=== PATIENT | female | born 1930 | race American Indian/Alaskan Native ===

== ENCOUNTER 2016-11-28 09:02 | Outpatient (CLI) | payer MEDICARE ==
[2016-11-28 09:37] LABS: Mean Corpuscular HGB Conc 30 % (30-34); Mean Corpuscular Volume 74 fl (79-97); Platelet Count 185 K/mm3 (140-440); Red Blood Count 5.32 M/mm3 (3.65-5.03); Red Cell Distribution Width 15.9 % (13.2-15.2); White Blood Count 4.7 K/mm3 (4.5-11.0)
[2016-11-28 09:44] LABS: Hematocrit 39.2 % (30.3-42.9); Hemoglobin 11.8 gm/dl (10.1-14.3); Mean Corpuscular Hemoglobin 22 pg (28-32)
[2016-11-28 09:46] LABS: Albumin 3.7 g/dL (3.9-5); Albumin/Globulin Ratio 1.1 %; BUN/Creatinine Ratio 17.69; Bilirubin,Total 0.6 mg/dL (0.1-1.2); Calcium 8.6 mg/dL (8.4-10.2); Chloride 106.2 mmol/L (98-107); Potassium 4.1 mmol/L (3.6-5.0)
[2016-11-28 10:29] LABS: Erythrocyte Sedimentation Rate 6 mm/Hr (0-20)
[2016-11-29 23:40] LABS: Albumin 3.7 g/dL (3.8-4.8); Gamma Globulin 1.3 g/dL (0.8-1.7)
== END 2016-11-28 09:03 | disposition home or self-care (01) ==
LOC: LAB 09:02
PROVIDERS: ATTEND Specialist
DX: G60.9 Hereditary and idiopathic neuropathy, unspecified (principal)
CPT/HCPCS: 36415; 80053; 82607; 82747; 82951; 84165; 84439; 84443; 85027; 85652

== ENCOUNTER 2022-02-23 18:11 | Observation (INO) | payer MEDICARE ==
--- NOTE | 2022-02-23 20:59 | XRay Report ---
Chest single view INDICATION: Weakness IMPRESSION: There is cardiomegaly with mild bilateral interstitial edema. Small pleural effusions are present. Signer Name: Harsh House MD Signed: 02/23/2022 8:54 PM Workstation Name: [email or web address] [id number] [id number]
[2022-02-23 21:13] LABS: Bilirubin,Urine NEG (Negative); Blood,Urine MOD (Negative); Color,Urine Yellow (Yellow); Urobilinogen,Urine < 2.0 mg/dL (<2.0)
[2022-02-23 21:19] LABS: Bacteria,Urine 2+ /HPF (Negative); Mucus,Urine FEW /HPF
[2022-02-23 21:22] LABS: WBC,Urine > 182.0 /HPF (0.0-6.0)
[2022-02-23 21:38] LABS: Hematocrit 41.6 % (30.3-42.9); Mean Corpuscular HGB Conc 31 % (30-34); Mean Corpuscular Volume 74 fl (79-97); Platelet Count 145 K/mm3 (140-440); Red Blood Count 5.64 M/mm3 (3.65-5.03); Red Cell Distribution Width 14.8 % (13.2-15.2)
[2022-02-23 21:58] LABS: Albumin 3.7 g/dL (3.9-5); Calcium 9.1 mg/dL (8.4-10.2)
[2022-02-23 22:10] LABS: Chol/HDL Ratio 5.33 %
--- NOTE | 2022-02-23 23:50 | Emergency Department Report ---
- General Chief complaint: Weakness Stated complaint: GENERALIZED WEAKNESS Time Seen by Provider: 02/23/22 22:18 Source: patient, EMS Mode of arrival: Stretcher Limitations: Physical Limitation - History of Present Illness Initial comments: Yuliana is a 89-year-old female past medical history of CHF, renal insufficiency, A. fib, thyroid disorder, pacemaker implantation presents emerged department complaining of similar symptoms that she was experiencing on 02/08/2022 where she visited the emergency department with a strong suspicion for dehydration after receiving 80 mg Lasix x2 at outside facility. During that time she was found to have urinary tract infection as well as acute kidney injury with a creatinine of 2.9 GFR of 18 serum potassium of 5.1 she was started on IV Levaquin as well as bolus 500 cc of normal saline and admitted for further management. She reports taking her medication as prescribed but reports minimal improvement of her energy level which is the reason for her return. She reports no hemoptysis no hematemesis no hematochezia, no fever, chills, sweats. No orthopnea or weight gain reported. Severity scale (0 -10): 0 - Related Data Home Medications Medication Instructions Recorded Confirmed Last Taken Albuterol Sulfate [Ventolin HFA] 2 puff IH Q4H PRN 01/24/14 02/09/22 10/07/14 08:00 Clopidogrel Bisulfate [Plavix] 75 mg PO DAILY 01/24/14 02/09/22 10/07/14 08:00 Furosemide [Lasix] 20 mg PO DAILY 01/24/14 02/09/22 10/07/14 08:00 Levothyroxine [Synthroid] 88 mcg PO QAM 01/24/14 02/09/22 10/07/14 08:00 Losartan [Cozaar] 50 mg PO QDAY 01/24/14 02/09/22 10/07/14 08:00 Metoprolol [Lopressor TAB] 50 mg PO BID 01/24/14 02/09/22 10/07/14 08:00 Pioglitazone [Actos] 15 mg PO QDAY 01/24/14 02/09/22 10/07/14 08:00 Previous Rx's Medication Instructions Recorded Last Taken Type traMADoL [Ultram 50 MG tab] 50 mg PO Q6H PRN #20 tablet 01/24/14 10/07/14 08:00 Rx Apixaban [Eliquis] 5 mg PO Q12HR tablet 02/10/22 Unknown Rx Nitrofurantoin [place]/M-Cryst 100 mg PO Q12HR #10 capsule 02/10/22 Unknown Rx [Macrobid CAP] Allergies Allergy/AdvReac Type Severity Reaction Status Date / Time aspirin Allergy Rash Verified 02/23/22 19:00 Penicillins Allergy Rash Verified 02/23/22 19:00 contrast dye Allergy Unknown Uncoded 02/23/22 19:00 ED Review of Systems ROS: Stated complaint: GENERALIZED WEAKNESS Other details as noted in HPI Comment: All other systems reviewed and negative ED Past Medical Hx - Past Medical History Hx Hypertension: Yes Hx Heart Attack/AMI: No Hx Congestive Heart Failure: Yes Hx Diabetes: Yes Hx GERD: Yes Hx Sickle Cell Disease: No Hx Arthritis: Yes Hx COPD: Yes Hx HIV: No Additional medical history: double masectomy, stents in each leg - Surgical History Hx Coronary Stent: Yes Hx Breast Surgery: Yes (DOUBLE MASTECTOMY) - Social History Smoking Status: Never Smoker - Medications Home Medications: Home Medications Medication Instructions Recorded Confirmed Last Taken Type Albuterol Sulfate [Ventolin HFA] 2 puff IH Q4H PRN 01/24/14 02/09/22 10/07/14 08:00 History Clopidogrel Bisulfate [Plavix] 75 mg PO DAILY 01/24/14 02/09/22 10/07/14 08:00 History Furosemide [Lasix] 20 mg PO DAILY 01/24/14 02/09/22 10/07/14 08:00 History Levothyroxine [Synthroid] 88 mcg PO QAM 01/24/14 02/09/22 10/07/14 08:00 History Losartan [Cozaar] 50 mg PO QDAY 01/24/14 02/09/22 10/07/14 08:00 History Metoprolol [Lopressor TAB] 50 mg PO BID 01/24/14 02/09/22 10/07/14 08:00 History Pioglitazone [Actos] 15 mg PO QDAY 01/24/14 02/09/22 10/07/14 08:00 History traMADoL [Ultram 50 MG tab] 50 mg PO Q6H PRN #20 tablet 01/24/14 02/09/22 10/07/14 08:00 Rx Apixaban [Eliquis] 5 mg PO Q12HR tablet 02/10/22 Unknown Rx Nitrofurantoin Ceiba/M-Cryst 100 mg PO Q12HR #10 capsule 02/10/22 Unknown Rx [Macrobid CAP] ED Physical Exam - General Limitations: Physical Limitation General appearance: alert, in no apparent distress - Head Head exam: Present: atraumatic, normocephalic - Eye Eye exam: Present: normal appearance - ENT ENT exam: Present: mucous membranes moist - Neck Neck exam: Present: normal inspection, full ROM, other (No JVD noted). Absent: tenderness, lymphadenopathy - Respiratory Respiratory exam: Present: normal lung sounds bilaterally, decreased breath sounds (To the bases). Absent: respiratory distress - Cardiovascular Cardiovascular Exam: Present: regular rate, normal rhythm. Absent: systolic murmur, diastolic murmur, rubs, gallop - GI/Abdominal GI/Abdominal exam: Present: soft, normal bowel sounds. Absent: tenderness, rebound, hypoactive bowel sounds - Extremities Exam Extremities exam: Present: normal inspection - Back Exam Back exam: Present: normal inspection - Neurological Exam Neurological exam: Present: alert, oriented X3 - Psychiatric Psychiatric exam: Present: normal affect, normal mood - Skin Skin exam: Present: warm, dry, intact, normal color. Absent: rash - Level of Consciousness 1a. Level of Consciousness: alert/keenly responsive - LOC Questions 1b. LOC Questions: answers both correctly - LOC Command 1c. LOC Commands: performs tasks correctly - Best Gaze 2. Best Gaze: normal - Visual 3. Visual: no visual loss - Facial Palsy 4. Facial Palsy: normal symmetrical movement - Motor Arm 5a. Motor Arm Left: no drift 5b. Motor Arm Right: no drift - Motor Leg 6a. Motor Leg Left: no drift 6b. Motor Leg Right: no movement - Limb Ataxia 7. Limb Ataxia: absent - Sensory 8. Sensory: normal - Best Language 9. Best Language: no aphasia - Dysarthria 10. Dysarthria: normal - Extinction and Inattention 11. Extinction/Inattention: no abnormality - Scoring Total Score: 4 Stroke Severity: Minor Stroke ED Course Vital Signs 02/23/22 18:12 Temperature 98.1 F Pulse Rate 78 Respiratory 18 Rate Blood Pressure 130/72 [Left] O2 Sat by Pulse 100 Oximetry ED Medical Decision Making - Lab Data Result diagrams: 02/23/22 21:28 02/23/22 21:28 - Radiology Data [facility] [address] [place] [address] XRay Report Signed Patient: CHASIDY MCKEON MR#: [id number] : 1930 Acct:[id number] Age/Sex: 89 / F ADM Date: 02/23/22 Loc: ED Attending Dr: Ordering Physician: BEBE LEHMAN Date of Service: 02/23/22 Procedure(s): XR chest 1V ap Accession Number(s): [id number] cc: BEBE LEHMAN Fluoro Time In Minutes: Chest single view INDICATION: Weakness IMPRESSION: There is cardiomegaly with mild bilateral interstitial edema. Small pleural effusions are present. Signer Name: Harsh House MD Signed: 02/23/2022 8:54 PM Workstation Name: [id number] Transcribed By: BC Dictated By: Harsh House MD Electronically Authenticated By: Harsh House MD Signed Date/Time: 02/23/222053 DD/ 53 TD/TT: Critical care attestation.: If time is entered above; I have spent that time in minutes in the direct care of this critically ill patient, excluding procedure time. ED Disposition Condition: Stable Referrals: SAMANTA NOEL MD [Primary Care Provider] - 3-5 Days
[2022-02-24] MEDS ORDERED: cefTRIAXone/NS 1 GM/50 ML 1 GM/50 ML BAG IV STA (00:04)
[2022-02-24] MEDS ORDERED: MORPHINE 2 MG/1 ML INJ IV PRN (00:28)
[2022-02-24] MEDS ORDERED: MORPHINE 4 MG/1 ML INJ IV PRN (00:28)
[2022-02-24] MEDS ORDERED: ACETAMINOPHEN 325 MG TAB PO PRN (00:28)
[2022-02-24] MEDS ORDERED: ALBUTEROL 2.5 MG/3 ML NEBU IH PRN (00:28)
[2022-02-24] MEDS ORDERED: DEXTROSE 50% IN WATER (25GM) 50 ML SYRINGE IV PRN (00:28)
[2022-02-24] MEDS ORDERED: ONDANSETRON 4 MG/2 ML INJ IV PRN (00:28)
--- NOTE | 2022-02-24 00:37 | History and Physical Report ---
History of Present Illness Date of examination: 02/24/22 Date of admission: 02/24/22 Chief complaint: Weakness History of present illness: 89-year-old female past medical history of CHF, renal insufficiency, A. fib, thyroid disorder, pacemaker implantation presents emerged department complaining of similar symptoms that she was experiencing on 02/08/2022 where she visited the emergency department with a strong suspicion for dehydration after receiving 80 mg Lasix x2 at outside facility. During that time she was found to have urinary tract infection as well as acute kidney injury with a creatinine of 2.9 GFR of 18 serum potassium of 5.1 she was started on IV Levaquin as well as bolus 500 cc of normal saline and admitted for further management. She reports taking her medication as prescribed but reports minimal improvement of her energy level which is the reason for her return. She reports no hemoptysis no hematemesis no hematochezia, no fever, chills, sweats. No orthopnea or weight gain reported. In the emergency room patient is found to have a UTI patient urine WBCs 182. We are going to admit the patient we will put the patient on antibiotic we will send the urine for culture Past History Past Medical History: atrial fib, arthritis (double masectomy, stents in each leg), diabetes, GERD, heart failure, renal failure, other (Thyroid disorder) Past Surgical History: Other (double masectomy, stents in each leg) Social history: no significant social history Family history: hypertension Medications and Allergies Allergies Allergy/AdvReac Type Severity Reaction Status Date / Time aspirin Allergy Rash Verified 02/23/22 19:00 Penicillins Allergy Rash Verified 02/23/22 19:00 contrast dye Allergy Unknown Uncoded 02/23/22 19:00 Home Medications Medication Instructions Recorded Confirmed Last Taken Type Albuterol Sulfate [Ventolin HFA] 2 puff IH Q4H PRN 01/24/14 02/09/22 10/07/14 08:00 History Clopidogrel Bisulfate [Plavix] 75 mg PO DAILY 01/24/14 02/09/22 10/07/14 08:00 History Furosemide [Lasix] 20 mg PO DAILY 01/24/14 02/09/22 10/07/14 08:00 History Levothyroxine [Synthroid] 88 mcg PO QAM 01/24/14 02/09/22 10/07/14 08:00 History Losartan [Cozaar] 50 mg PO QDAY 01/24/14 02/09/22 10/07/14 08:00 History Metoprolol [Lopressor TAB] 50 mg PO BID 01/24/14 02/09/22 10/07/14 08:00 History Pioglitazone [Actos] 15 mg PO QDAY 01/24/14 02/09/22 10/07/14 08:00 History traMADoL [Ultram 50 MG tab] 50 mg PO Q6H PRN #20 tablet 01/24/14 02/09/22 10/07/14 08:00 Rx Apixaban [Eliquis] 5 mg PO Q12HR tablet 02/10/22 Unknown Rx Nitrofurantoin [place]/M-Cryst 100 mg PO Q12HR #10 capsule 02/10/22 Unknown Rx [Macrobid CAP] Active Meds: Active Medications Acetaminophen (Acetaminophen 325 Mg Tab) 650 mg PO Q4H PRN PRN Reason: Pain MILD(1-3)/Fever >100.5/GAINES Albuterol (Albuterol 2.5 Mg/3 Ml Nebu) 2.5 mg IH Q3HRT PRN PRN Reason: Shortness Of Breath Albuterol/Ipratropium (Ipratropium/Albuterol Sulfate 3 Ml Ampul.Neb) 1 ampul IH Q6HRT LILLY Clopidogrel Bisulfate (Clopidogrel 75 Mg Tab) 75 mg PO DAILY [facility] Dextrose (Dextrose 50% In Water (25gm) 50 Ml Syringe) 50 ml IV Q30MIN PRN; Prot ocol PRN Reason: Hypoglycemia Famotidine (Famotidine 20 Mg/2 Ml Inj) 20 mg IV BID [facility] Furosemide (Furosemide 20 Mg Tab) 20 mg PO DAILY [facility] Heparin Sodium (Porcine) (Heparin 5,000 Unit/1 Ml Vial) 5,000 unit SUB-Q Q12HR [facility] Ceftriaxone Sodium (Rocephin/Ns 2 Gm/100 Ml) 2 gm in 100 mls @ 200 mls/hr IV Q24H LILLY; Protocol Insulin Human Lispro (Insulin Lispro 100 Unit/Ml) 0 unit SUB-Q ACHS LILLY; Pro tocol Miscellaneous Medication (Apixaban) 5 mg PO Q12HR [facility] Morphine Sulfate (Morphine 2 Mg/1 Ml Inj) 2 mg IV Q4H PRN PRN Reason: Pain, Moderate (4-6) Morphine Sulfate (Morphine 4 Mg/1 Ml Inj) 4 mg IV Q4H PRN PRN Reason: Pain , Severe (7-10) Ondansetron HCl (Ondansetron 4 Mg/2 Ml Inj) 4 mg IV Q8H PRN PRN Reason: Nausea And Vomiting Sodium Chloride (Sodium Chloride 0.9% 10 Ml Flush Syringe) 10 ml IV BID LILLY Sodium Chloride (Sodium Chloride 0.9% 10 Ml Flush Syringe) 10 ml IV PRN PRN PRN Reason: LINE FLUSH Review of Systems All systems: negative Constitutional: fatigue, weakness, malaise, lethargy Exam - Constitutional Vitals: Temp Pulse Resp BP Pulse Ox 98.1 F 78 18 130/72 100 02/23/22 18:12 02/23/22 18:12 02/23/22 18:12 02/23/22 18:12 02/23/22 18:12 General appearance: Present: no acute distress, well-nourished - EENT Eyes: Present: PERRL ENT: hearing intact, clear oral mucosa - Neck Neck: Present: supple, normal ROM - Respiratory Respiratory effort: normal Respiratory: bilateral: CTA - Cardiovascular Heart Sounds: Present: S1 & S2. Absent: rub, click - Extremities Extremities: pulses symmetrical, No edema Peripheral Pulses: within normal limits - Abdominal General gastrointestinal: Present: soft, non-tender, non-distended, normal bowel sounds Female genitourinary: Present: normal - Integumentary Integumentary: Present: clear, warm, dry - Musculoskeletal Musculoskeletal: gait normal, strength equal bilaterally - Psychiatric Psychiatric: appropriate mood/affect, intact judgment & insight - Neurologic Neurologic: CNII-XII intact, moves all extremities HEART Score - HEART Score Troponin: Troponin T 0.046 ng/mL (0.00-0.029) H 02/23/22 21:28 Results - Labs CBC & Chem 7: 02/23/22 21:28 02/23/22 21:28 Labs: Laboratory Last Values WBC 4.1 K/mm3 (4.5-11.0) L 02/23/22 21:28 RBC 5.64 M/mm3 (3.65-5.03) H 02/23/22 21:28 Hgb 13.0 gm/dl (10.1-14.3) 02/23/22 21:28 Hct 41.6 % (30.3-42.9) 02/23/22 21: MCV 74 fl (79-97) L 02/23/22 21: MCH 23 pg (28-32) L 02/23/22 21:28 MCHC 31 % (30-34) 02/23/22 21:28 RDW 14.8 % (13.2-15.2) 02/23/22 21:28 Plt Count 145 K/mm3 (140-440) 02/23/22 21:28 Sodium 137 mmol/L (137-145) 02/23/22 21:28 Potassium 5.1 mmol/L (3.6-5.0) H 02/23/22 21:28 Chloride 101.7 mmol/L (98-107) 02/23/22 21: Carbon Dioxide 20 mmol/L (22-30) L 02/23/22 21: Anion Gap 20 mmol/L 02/23/22 21:28 BUN 55 mg/dL (7-17) H 02/23/22 21: Creatinine 1.6 mg/dL (0.6-1.2) H 02/23/22 21:28 Estimated GFR 37 ml/min 02/23/22 21: BUN/Creatinine Ratio 34 % 02/23/22 21: Glucose 94 mg/dL (65-100) 02/23/22 21: Calcium 9.1 mg/dL (8.4-10.2) 02/23/22 21: Total Bilirubin 1.00 mg/dL (0.1-1.2) 02/23/22 21: AST 39 units/L (5-40) 02/23/22 21: ALT 12 units/L (7-56) 02/23/22 21:28 Alkaline Phosphatase 43 units/L (35-129) 02/23/22 21:28 Troponin T 0.046 ng/mL (0.00-0.029) H 02/23/22 21:28 NT-Pro-B Natriuret Pep 8032 pg/mL (0-900) H 02/23/22 21:28 Total Protein 6.6 g/dL (6.3-8.2) 02/23/22 21:28 Albumin 3.7 g/dL (3.9-5) L 02/23/22 21: Albumin/Globulin Ratio 1.3 % 02/23/22 21: Triglycerides 173 mg/dL (2-149) H 02/23/22 21: Cholesterol 176 mg/dL (50-199) 02/23/22 21: LDL Cholesterol Direct 98 mg/dL (50-130) 02/23/22 21: HDL Cholesterol 33 mg/dL (40-59) L 02/23/22 21: Cholesterol/HDL Ratio 5.33 % 02/23/22 21:28 Urine Color Yellow (Yellow) 02/23/22 Unknown Urine Turbidity Cloudy (Clear) 02/23/22 Unknown Urine pH 5.0 (5.0-7.0) 02/23/22 Unknown Ur Specific [place] 1.013 (1.003-1.030) 02/23/22 Unknown Urine Protein 30 mg/dl mg/dL (Negative) 02/23/22 Unknown Urine Glucose (UA) Neg mg/dL (Negative) 02/23/22 Unknown Urine Ketones Neg mg/dL (Negative) 02/23/22 Unknown Urine Blood Mod (Negative) 02/23/22 Unknown Urine Nitrite Pos (Negative) 02/23/22 Unknown Urine Bilirubin Neg (Negative) 02/23/22 Unknown Urine Urobilinogen < 2.0 mg/dL (<2.0) 02/23/22 Unknown Ur Leukocyte Esterase Lg (Negative) 02/23/22 Unknown Urine WBC (Auto) > 182.0 /HPF (0.0-6.0) H 02/23/22 Unknown Urine RBC (Auto) 6.0 /HPF (0.0-6.0) 02/23/22 Unknown U Epithel Cells (Auto) 7.0 /HPF (0-13.0) 02/23/22 Unknown Urine Bacteria (Auto) 2+ /HPF (Negative) 02/23/22 Unknown Urine Mucus Few /HPF 02/23/22 Unknown Urine Yeast (Budding) Few /HPF 02/23/22 Unknown - Imaging and Cardiology Chest x-ray: report reviewed Assessment and Plan VTE prophylaxis?: Chemical Plan of care discussed with patient/family: Yes - Patient Problems (1) Urinary tract infection Current Visit: No Status: Acute Plan to address problem: Admit the patient to the medical floor. We will put the patient on cardiac/1800 kcal ADA diet. Rocephin 2 g IV daily. We will do the blood culture urine culture. Recheck CBC in the morning (2) Acute heart failure Current Visit: No Status: Acute Plan to address problem: Stable. We will put the patient on fluid restriction. We will continue the Las ix 20 mg p.o. daily and losartan 50 mg p.o. daily. Outpatient follow-up with cardiology (3) Acute kidney injury Current Visit: No Status: Acute Plan to address problem: Avoid nephrotoxic drug. Renally dose medication. Reconsult nephrology for evaluation. Recheck BMP in the morning (4) Atrial fibrillation with RVR Current Visit: No Status: Acute Plan to address problem: Toprol to 50 mg p.o. twice daily. Eliquis 5 mg p.o. every 12 hours. Losartan 50 mg p.o. daily. Outpatient follow-up with cardiology (5) Hypothyroidism Current Visit: No Status: Acute Plan to address problem: Levothyroxine 88 mcg p.o. every morning. We recheck that TSH. We will monitor the patient closely (6) DVT prophylaxis Current Visit: No Status: Acute Plan to address problem: Eliquis 5 mg p.o. every 12 hours for DVT prophylaxis. Pepcid 20 mg p.o. every 12 hours for GI prophylaxis. Patient is a full code
[2022-02-24 00:46] LABS: INR 1.29 (0.87-1.13)
[2022-02-24] MEDS ORDERED: IPRATROPIUM/ALBUTEROL SULFATE 3 ML AMPUL.NEB IH SCH (02:00)
[2022-02-24] MEDS: LEVOTHYROXINE 88 MCG TAB PO SCH (06:16)
[2022-02-24] MEDS: INSULIN LISPRO 100 UNIT/ML SUB-Q SCH ×5 (07:51→21:47)
[2022-02-24] MEDS: METOPROLOL TARTRATE 50 MG TAB PO SCH ×2 (07:57→17:44)
[2022-02-24] MEDS ORDERED: PIOGLITAZONE 15 MG TAB PO SCH (08:00)
--- NOTE | 2022-02-24 09:20 | Electrocardiograph Report ---
Test Date: 2022-02-24 Test Time: 00:11:01 Pat Name: CHASIDY MCKEON Department: Room: A458 1 Gender: F Coil Tier: LESLIE : 1930 Requested By: LOIS FREDERICK Order Number: [id number] Reading MD: Rachid Erwin Measurements Intervals [place] Rate: 72 P: [place]: QRS: -81 QRSD: 115 T: 93 QT: 416 QTc: 456 Interpretive Statements ventricular-paced rhythm No previous ECG available for comparison Electronically Signed On 02-24-2022 9:19:40 EDT by Rachid Erwin
[2022-02-24] MEDS ORDERED: HEPARIN 5,000 UNIT/1 ML VIAL SUB-Q SCH (10:00)
[2022-02-24] MEDS ORDERED: cefTRIAXone/NS 2 GM/100 ML 2 GM/100 ML BAG IV SCH (10:00)
[2022-02-24] MEDS ORDERED: FAMOTIDINE 20 MG/2 ML INJ IV SCH (10:00)
[2022-02-24] MEDS: APIXABAN 5 MG TAB PO SCH ×2 (10:08→21:40)
[2022-02-24] MEDS: FUROSEMIDE 20 MG TAB PO SCH (10:08)
[2022-02-24] MEDS: LOSARTAN 50 MG TAB PO SCH (10:08)
[2022-02-24] MEDS: CLOPIDOGREL 75 MG TAB PO SCH (10:09)
--- NOTE | 2022-02-24 14:05 | Event Note ---
Date: 02/24/22 The patient was evaluated this morning, she was found to be hemodynamically stable. #Acute on chronic systolic heart failure - Continue CHF exacerbation protocol: Telemetry, Strict I/O, monitor urine output every shift, daily weights, afterload reduction, low-sodium diet, and fluid restriction of approximately 1.5 mL/day, IV Lasix 40 mg twice daily, losartan 50 mg daily, Plavix 75 mg daily - Supplemental oxygen: None - ProBNP on admission: 8032 - Cardiology consulted; pending recs - Pending TTE to evaluate cardiac function - Continue to monitor #Acute cystitis without hematuria Urinalysis revealing positive nitrites, large leukocyte esterase, >182 WBCs, 2+ bacteria Pending urine culture. Continue Rocephin 2 g daily #CKD stage III Creatinine 1.6 (baseline unknown) During patient's previous hospitalization (January 2022) patient presented with an AJ. The current creatinine is actually lower than the previous hospitalizations. It is highly likely that the patient is at her baseline. Continue to monitor with daily BMP. #Chronic atrial fibrillation Continue home metoprolol tartrate 50 mg twice daily, Eliquis 5 mg every 12 hours #Hypothyroidism Continue home levothyroxine 88 mcg daily #Mild protein caloric malnutrition Albumin 3.7 Will start dietary supplementation once patient becomes more stable. #Coordination of CARE time: 30 minutes. Total visit time equals 30 or more minutes with greater than 50% spent [id number] on coordination of care and counseling. #Advanced care planning -Disease education conducted, care plan discussed, diagnoses discussed, prognosis discussed, and patient acknowledges understanding with care plan -Time: +30 min
[2022-02-25 04:41] LABS: Mean Corpuscular HGB Conc 31 % (30-34); Mean Corpuscular Volume 75 fl (79-97); Platelet Count 145 K/mm3 (140-440); Red Blood Count 6.05 M/mm3 (3.65-5.03)
[2022-02-25 05:00] LABS: Hematocrit 45.6 % (30.3-42.9)
[2022-02-25 05:08] LABS: Calcium 9.1 mg/dL (8.4-10.2)
[2022-02-25] MEDS: LEVOTHYROXINE 88 MCG TAB PO SCH (07:03)
[2022-02-25 07:06] LABS: Anisocytosis 2+; Basophils % (Manual) 0 % (0.0-1.8); Eosinophils % (Manual) 0 % (0.0-4.3); Hypochromasia 1+; Ovalocytes Few; Platelet Estimate Consistent w Auto; Total Cells Counted 100
[2022-02-25] MEDS ORDERED: SODIUM POLYSTYRENE 15 GM/60 ML ORAL LIQD PO NR (07:28)
[2022-02-25] MEDS ORDERED: cefTRIAXone/NS 1 GM/50 ML 1 GM/50 ML BAG IV SCH (10:00)
[2022-02-25] MEDS: INSULIN LISPRO 100 UNIT/ML SUB-Q SCH ×4 (10:19→22:36)
[2022-02-25] MEDS: FAMOTIDINE 20 MG TAB PO SCH (10:19)
[2022-02-25] MEDS: LOSARTAN 50 MG TAB PO SCH (10:19)
[2022-02-25] MEDS: APIXABAN 5 MG TAB PO SCH ×2 (10:19→21:12)
[2022-02-25] MEDS: FUROSEMIDE 20 MG TAB PO SCH (10:20)
[2022-02-25] MEDS: CLOPIDOGREL 75 MG TAB PO SCH (10:20)
[2022-02-25] MEDS: METOPROLOL TARTRATE 50 MG TAB PO SCH (10:20)
--- NOTE | 2022-02-25 16:39 | Progress Note ---
Assessment and Plan Assessment and plan: #Acute on chronic systolic heart failure-ruled out - Continue CHF exacerbation protocol: Telemetry, Strict I/O, monitor urine output every shift, daily weights, afterload reduction, low-sodium diet, and fluid restriction of approximately 1.5 mL/day, IV Lasix 40 mg twice daily, losartan 50 mg daily, Plavix 75 mg daily - Supplemental oxygen: None - ProBNP on admission: 8032 - Cardiology consulted; Appreciate recs -TTE (02/25/2022) revealing EF 50-55% with normal size LV, normal LV systolic function, mild concentric LV hypertrophy, moderately dilated RV, mildly reduced RV systolic function, severely dilated LA, severely dilated RA, and RVSP is 35 mmHg. - Continue to monitor #Acute cystitis without hematuria Urinalysis revealing positive nitrites, large leukocyte esterase, >182 WBCs, 2+ bacteria Urine culture with gram-negative rods. Pending speciation and sensitivities. Patient has been having repeated episodes of acute cystitis despite antibiotic treatment. Concern for resistant bacteria. Continue Rocephin 2 g daily #CKD stage III- Creatinine 1.6-->1.4 (baseline unknown) During patient's previous hospitalization (January 2022) patient presented with an AJ. The current creatinine is actually lower than the previous hospitalizations. It is highly likely that the patient is at her baseline. Continue to monitor with daily BMP. #Chronic atrial fibrillation Continue home metoprolol tartrate 50 mg twice daily, Eliquis 5 mg every 12 hours #Hypothyroidism Continue home levothyroxine 88 mcg daily #Mild protein caloric malnutrition Albumin 3.7 Starting dietary supplementation. #Advanced care planning -Disease education conducted, care plan discussed, diagnoses discussed, prognosi s discussed, and patient acknowledges understanding with care plan -Time: +30 min Disposition Plan: Continue medical management Total Time Spent with Patient (Minutes): 45 min History Interval history: No acute events overnight. Hospitalist Physical - Constitutional Vitals: Temp Pulse Resp BP Pulse Ox 97.5 F L 82 18 94/52 97 02/25/22 12:10 02/25/22 12:10 02/25/22 12:10 02/25/22 12:10 02/25/22 13:00 General appearance: Present: no acute distress, well-nourished - EENT Eyes: Present: PERRL, EOM intact ENT: hearing intact, clear oral mucosa, dentition normal - Neck Neck: Present: supple, normal ROM - Respiratory Respiratory effort: normal Respiratory: bilateral: diminished (2 L nasal cannula) - Cardiovascular Rhythm: regular Heart Sounds: Present: S1 & S2 - Extremities Extremities: no ischemia, pulses intact, pulses symmetrical, No edema, normal temperature, normal color Peripheral Pulses: within normal limits - Abdominal General gastrointestinal: soft, non-tender, non-distended, normal bowel sounds - Integumentary Integumentary: Present: clear, warm, dry - Psychiatric Psychiatric: appropriate mood/affect, intact judgment & insight, memory intact, cooperative - Neurologic Neurologic: CNII-XII intact - Allied Health Allied health notes reviewed: nursing HEART Score - HEART Score Troponin: Troponin T 0.050 ng/mL (0.00-0.029) H 02/24/22 00:22 Results - Labs CBC & Chem 7: 02/25/22 04:25 02/25/22 04:25 Labs: Laboratory Last Values WBC 4.1 K/mm3 (4.5-11.0) L 02/25/22 04:25 RBC 6.05 M/mm3 (3.65-5.03) H 02/25/22 04:25 Hgb 14.0 gm/dl (10.1-14.3) 02/25/22 04:25 Hct 45.6 % (30.3-42.9) H 02/25/22 04:25 MCV 75 fl (79-97) L 02/25/22 04:25 MCH 23 pg (28-32) L 02/25/22 04:25 MCHC 31 % (30-34) 02/25/22 04:25 RDW 15.0 % (13.2-15.2) 02/25/22 04:25 Plt Count 145 K/mm3 (140-440) 02/25/22 04:25 Barron % (Auto) Flare Breaker 02/25/22 04:25 Add Manual Diff Complete 02/25/22 04:25 Total Counted 100 02/25/22 04:25 Seg Neuts % (Manual) 72.0 % (40.0-70.0) H 02/25/22 04:25 Band Neutrophils % 1.0 % 02/25/22 04:25 Lymphocytes % (Manual) 10.0 % (13.4-35.0) L 02/25/22 04:25 Reactive Lymphs % (Man) 0 % 02/25/22 04:25 Monocytes % (Manual) 16.0 % (0.0-7.3) H 02/25/22 04:25 Eosinophils % (Manual) 0 % (0.0-4.3) 02/25/22 04:25 Basophils % (Manual) 0 % (0.0-1.8) 02/25/22 04:25 Metamyelocytes % 1.0 % 02/25/22 04:25 Myelocytes % 0 % 02/25/22 04:25 Promyelocytes % 0 % 02/25/22 04:25 Blast Cells % 0 % 02/25/22 04:25 Nucleated RBC % Not Reportable 02/25/22 04:25 Seg Neutrophils # Man 3.0 K/mm3 (1.8-7.7) 02/25/22 04:25 Band Neutrophils # 0.0 K/mm3 02/25/22 04:25 Lymphocytes # (Manual) 0.4 K/mm3 (1.2-5.4) L 02/25/22 04:25 Abs React Lymphs (Man) 0.0 K/mm3 02/25/22 04:25 Monocytes # (Manual) 0.7 K/mm3 (0.0-0.8) 02/25/22 04:25 Eosinophils # (Manual) 0.0 K/mm3 (0.0-0.4) 02/25/22 04:25 Basophils # (Manual) 0.0 K/mm3 (0.0-0.1) 02/25/22 04:25 Metamyelocytes # 0.0 K/mm3 02/25/22 04:25 Myelocytes # 0.0 K/mm3 02/25/22 04:25 Promyelocytes # 0.0 K/mm3 02/25/22 04:25 Blast Cells # 0.0 K/mm3 02/25/22 04:25 WBC Morphology Not Reportable 02/25/22 04:25 Hypersegmented Neuts Not Reportable 02/25/22 04:25 Hyposegmented Neuts Not Reportable 02/25/22 04:25 Hypogranular Neuts Not Reportable 02/25/22 04:25 Smudge Cells Not Reportable 02/25/22 04:25 Toxic Granulation Not Reportable 02/25/22 04:25 Toxic Vacuolation Not Reportable 02/25/22 04:25 Dohle Bodies Not Reportable 02/25/22 04:25 Pelger-Huet Anomaly Not Reportable 02/25/22 04:25 Chidi Rods Not Reportable 02/25/22 04:25 Platelet Estimate Consistent w auto 02/25/22 04:25 Clumped Platelets Not Reportable 02/25/22 04:25 Plt Clumps, EDTA Not Reportable 02/25/22 04:25 Large Platelets Not Reportable 02/25/22 04:25 Giant Platelets Not Reportable 02/25/22 04:25 Platelet Satelliting Not Reportable 02/25/22 04:25 Plt Morphology Comment Not Reportable 02/25/22 04:25 RBC Morphology Not Reportable 02/25/22 04:25 Dimorphic RBCs Not Reportable 02/25/22 04:25 Polychromasia Not Reportable 02/25/22 04:25 Hypochromasia 1+ 02/25/22 04:25 Poikilocytosis Not Reportable 02/25/22 04:25 Anisocytosis 2+ 02/25/22 04:25 Microcytosis 2+ 02/25/22 04:25 Macrocytosis Not Reportable 02/25/22 04:25 Spherocytes Not Reportable 02/25/22 04:25 Pappenheimer Bodies Not Reportable 02/25/22 04:25 Sickle Cells Not Reportable 02/25/22 04:25 Target Cells Not Reportable 02/25/22 04:25 Tear Drop Cells Not Reportable 02/25/22 04:25 Ovalocytes Few 02/25/22 04:25 Helmet Cells Not Reportable 02/25/22 04:25 Em-[place] Bodies Not Reportable 02/25/22 04:25 [place] Rings Not Reportable 02/25/22 04:25 Alice Cells Not Reportable 02/25/22 04:25 Bite Cells Not Reportable 02/25/22 04:25 Crenated Cell Not Reportable 02/25/22 04:25 Elliptocytes Not Reportable 02/25/22 04:25 Acanthocytes (Spur) Not Reportable 02/25/22 04:25 Rouleaux Not Reportable 02/25/22 04:25 Hemoglobin C Crystals Not Reportable 02/25/22 04:25 Schistocytes Not Reportable 02/25/22 04:25 Malaria parasites Not Reportable 02/25/22 04:25 Tank Bodies Not Reportable 02/25/22 04:25 Hem Pathologist Commnt No 02/25/22 04:25 PT 17.6 Sec. (12.2-14.9) H 02/24/22 00:22 INR 1.29 (0.87-1.13) H 02/24/22 00:22 Sodium 136 mmol/L (137-145) L 02/25/22 04:25 Potassium 5.2 mmol/L (3.6-5.0) H 02/25/22 04:25 Chloride 104.6 mmol/L (98-107) 02/25/22 04:25 Carbon Dioxide 16 mmol/L (22-30) L 02/25/22 04:25 Anion Gap 21 mmol/L 02/25/22 04:25 BUN 52 mg/dL (7-17) H 02/25/22 04:25 Creatinine 1.4 mg/dL (0.6-1.2) H 02/25/22 04:25 Estimated GFR 43 ml/min 02/25/22 04:25 BUN/Creatinine Ratio 37 % 02/25/22 04:25 Glucose 106 mg/dL (65-100) H 02/25/22 04:25 POC Glucose 56 mg/dL (70-105) L 02/25/22 11:19 Calcium 9.1 mg/dL (8.4-10.2) 02/25/22 04:25 Total Bilirubin 1.00 mg/dL (0.1-1.2) 02/23/22 21:28 AST 39 units/L (5-40) 02/23/22 21:28 ALT 12 units/L (7-56) 02/23/22 21:28 Alkaline Phosphatase 43 units/L (35-129) 02/23/22 21:28 Troponin T 0.050 ng/mL (0.00-0.029) H 02/24/22 00:22 NT-Pro-B Natriuret Pep 8032 pg/mL (0-900) H 02/23/22 21:28 Total Protein 6.6 g/dL (6.3-8.2) 02/23/22 21:28 Albumin 3.7 g/dL (3.9-5) L 02/23/22 21:28 Albumin/Globulin Ratio 1.3 % 02/23/22 21:28 Triglycerides 173 mg/dL (2-149) H 02/23/22 21:28 Cholesterol 176 mg/dL (50-199) 02/23/22 21:28 LDL Cholesterol Direct 98 mg/dL (50-130) 02/23/22 21:28 HDL Cholesterol 33 mg/dL (40-59) L 02/23/22 21:28 Cholesterol/HDL Ratio 5.33 % 02/23/22 21:28 Urine Color Yellow (Yellow) 02/23/22 Unknown Urine Turbidity Cloudy (Clear) 02/23/22 Unknown Urine pH 5.0 (5.0-7.0) 02/23/22 Unknown Ur Specific Hunter 1.013 (1.003-1.030) 02/23/22 Unknown Urine Protein 30 mg/dl mg/dL (Negative) 02/23/22 Unknown Urine Glucose (UA) Neg mg/dL (Negative) 02/23/22 Unknown Urine Ketones Neg mg/dL (Negative) 02/23/22 Unknown Urine Blood Mod (Negative) 02/23/22 Unknown Urine Nitrite Pos (Negative) 02/23/22 Unknown Urine Bilirubin Neg (Negative) 02/23/22 Unknown Urine Urobilinogen < 2.0 mg/dL (<2.0) 02/23/22 Unknown Ur Leukocyte Esterase Lg (Negative) 02/23/22 Unknown Urine WBC (Auto) > 182.0 /HPF (0.0-6.0) H 02/23/22 Unknown Urine RBC (Auto) 6.0 /HPF (0.0-6.0) 02/23/22 Unknown U Epithel Cells (Auto) 7.0 /HPF (0-13.0) 02/23/22 Unknown Urine Bacteria (Auto) 2+ /HPF (Negative) 02/23/22 Unknown Urine Mucus Few /HPF 02/23/22 Unknown Urine Yeast (Budding) Few /HPF 02/23/22 Unknown Microbiology: Microbiology 02/24/22 08:30 Urine,Clean Catch Urine Culture - Preliminary Gram Negative Isaias Handley/IV: Voiding Method External Female Catheter Active Medications - Current Medications Current Medications: Generic Name Dose Route Start Last Admin Trade Name Freq PRN Reason Stop Dose Admin Acetaminophen 650 mg 02/24/22 00:28 Acetaminophen 325 Mg Tab PO Q4H PRN Pain MILD(1-3)/Fever >100.5/GAINES Albuterol 2.5 mg 02/24/22 00:28 Albuterol 2.5 Mg/3 Ml Nebu IH Q3HRT PRN Shortness Of Breath Apixaban 5 mg 02/24/22 10:00 02/25/22 10:19 Apixaban 5 Mg Tab PO 5 mg Q12HR LILLY Administration Clopidogrel Bisulfate 75 mg 02/24/22 10:00 02/25/22 10:20 Clopidogrel 75 Mg Tab PO Not Given DAILY LILLY Dextrose 0 ml 02/24/22 00:28 Dextrose 50% In Water (25gm) 50 Ml Syringe IV Q30MIN PRN Hypoglycemia Protocol Famotidine 20 mg 02/25/22 10:00 02/25/22 10:19 Famotidine 20 Mg Tab PO 20 mg QAM LILLY Administration Furosemide 20 mg 02/24/22 10:00 02/25/22 10:20 Furosemide 20 Mg Tab PO 20 mg DAILY LILLY Administration Ceftriaxone Sodium 1 gm in 50 mls @ 100 mls/hr 02/25/22 10:00 02/25/22 10:20 Rocephin/Ns 1 Gm/50 Ml IV 100 mls/hr Q24HR LILLY Administration Protocol Insulin Human Lispro 0 unit 02/24/22 07:30 02/25/22 16:19 Insulin Lispro 100 Unit/Ml SUB-Q Not Given ACHS LILLY Protocol Levothyroxine Sodium 88 mcg 02/24/22 06:00 02/25/22 07:03 Levothyroxine 88 Mcg Tab PO 88 mcg QAM@0600 LILLY Administration Losartan Potassium 50 mg 02/24/22 10:00 02/25/22 10:19 Losartan 50 Mg Tab PO 50 mg QDAY LILLY Administration Metoprolol Tartrate 50 mg 02/24/22 08:00 02/25/22 10:20 Metoprolol Tartrate 50 Mg Tab PO Not Given BID@0800,1700 LILLY Morphine Sulfate 2 mg 02/24/22 00:28 Morphine 2 Mg/1 Ml Inj IV Q4H PRN Pain, Moderate (4-6) Morphine Sulfate 4 mg 02/24/22 00:28 Morphine 4 Mg/1 Ml Inj IV Q4H PRN Pain , Severe (7-10) Ondansetron HCl 4 mg 02/24/22 00:28 Ondansetron 4 Mg/2 Ml Inj IV Q8H PRN Nausea And Vomiting Sodium Chloride 10 ml 02/24/22 10:00 02/25/22 10:21 Sodium Chloride 0.9% 10 Ml Flush Syringe IV 10 ml BID LILLY Administration Sodium Chloride 10 ml 02/24/22 00:28 Sodium Chloride 0.9% 10 Ml Flush Syringe IV PRN PRN LINE FLUSH Nutrition/Malnutrition Assess - Dietary Evaluation Nutrition/Malnutrition Findings: Nutrition Notes Start: 02/24/22 15:08 Freq: Status: Active Protocol: Document 02/24/22 15:08 NILDA (Rec: 02/24/22 15:18 NILDA [id number]) Nutrition Notes Need for Assessment generated from: MD Order,Education Initial or Follow up Brief Note Current Diagnosis Acute Kidney Injury,CKD(stage I-IV),Diabetes,Hypertension, Heart Failure,Respiratory Failure,Malnutrition Other Pertinent Diagnosis Atrial Fibrilation/RVR s/p PCI , PVD, UTI, Cystitis, GERD, Hypothyroidism. Current Diet Cardiac/Consistent Carbohydrates Diet (since B ). 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 Weight Status Appropriate Subjective/Other Information RD consult for nutrition education assessment. Pt's PO intake of meals has been Fair (50-74%), according to ADL notes. Pt is on Nasal Cannula, O2 saturation @ 98%, according to Physical Assessment Histroy notes. Pt has missing teeth, according to Physical Assessment Histroy notes. Pt still in critical condition , not a candidate for Nutrition Education at the time, will assess feasibility on F/U. Percent of energy/protein needs met: Prescribed Cardiac/Consistent Carbohydrates Diet provides for energy/protein needs (1, 977 Kcal/86 g) during LOS. Nutrition Intervention Follow-Up By: 03/03/22 Additional Comments Pt still in critical condition , not a candidate for Nutrition Education at the time, will assess feasibility on F/U.
[2022-02-25] MEDS: METOPROLOL TARTRATE 25 MG TAB PO SCH (18:05)
[2022-02-26] MEDS: LEVOTHYROXINE 88 MCG TAB PO SCH (05:56)
[2022-02-26] MEDS: CLOPIDOGREL 75 MG TAB PO SCH (10:08)
[2022-02-26] MEDS: FAMOTIDINE 20 MG TAB PO SCH (10:08)
[2022-02-26] MEDS: FUROSEMIDE 20 MG TAB PO SCH (10:08)
[2022-02-26] MEDS: APIXABAN 5 MG TAB PO SCH (10:08)
[2022-02-26] MEDS: METOPROLOL TARTRATE 25 MG TAB PO SCH (10:10)
[2022-02-26 10:11] VITALS: BP 95/55
--- NOTE | 2022-02-26 13:04 | Discharge Summary ---
Providers - Providers Date of Admission: 02/24/22 00:28 Date of discharge: 02/26/22 Attending physician: TAWANDA BORREGO MD 02/24/22 00:28 Consult to Dietitian/Nutrition [CONS] Routine Physician Instructions: Reason For Exam: malnutrition and lactose intolerance Reason for Consult: Diet education 02/25/22 16:40 Physical Therapy Evaluation and Treat [CONS] Routine Comment: Reason For Exam: debility Primary care physician: RENE KUMAR Hospitalization Reason for admission: Acute on chronic systolic heart failureruled out Condition: Stable Pertinent studies: Reviewed. Procedures: None. Hospital course: 89-year-old female past medical history of chronic systolic heart failure, CKD stage III, chronic atrial fibrillation on anticoagulation, hypothyroidism, and pacemaker implantation who presented to the ED with complaints of decreased energy level, shortness of breath, and increased fatigue that was concerning for possible heart failure exacerbation. In the ED the patient was found to be hemodynamically stable. Patient underwent TTE revealing EF 50-55% with normal size LV, normal LV systolic function, mild concentric LV hypertrophy, moderately dilated RV, mildly reduced RV systolic function, severely dilated LA, severely dilated RA, and RVSP is 35 mmHg. The patient was ruled out for acute on chronic systolic heart failure exacerbation. Patient had a urinalysis performed in the ED that was revealing for positive nitrites, large leukocyte esterase, WBC >182, 2+ bacteria. Urine culture so far is revealing gram-negative rods; however, the speciation has not been determined. Further discussion with the patient's daughter revealed that the patient has been diagnosed with acute cystitis over the previous 5 years. The patient has been on multiple oral and IV antibiotics. The patient denied any dysuria, increased frequency, suprapubic tenderness, change in urine color or odor. The patient also remained hemodynamically stable during the entire hospitalization. 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 Patient is medically clear for discharge. Disposition: 01 HOME / SELF CARE / HOMELESS Final Discharge Diagnosis (Prints w/discharge instructions): Acute on chronic systolic heart failureruled out, acute cystitis without hematuriaruled out, CKD stage III, chronic atrial fibrillation, hypothyroidism, mild protein caloric malnutrition Time spent for discharge: 45 min Core Measure Documentation - Palliative Care Palliative Care/ Comfort Measures: Not Applicable - Core Measures Any of the following diagnoses?: history only Exam - Constitutional Vitals: Temp Pulse Resp BP Pulse Ox 98.2 F 74 20 95/55 96 02/26/22 10:16 02/26/22 10:16 02/26/22 10:16 02/26/22 10:16 02/26/22 10:29 General appearance: Present: no acute distress, well-nourished - EENT Eyes: Present: PERRL, EOM intact ENT: hearing intact, clear oral mucosa, dentition normal - Neck Neck: Present: supple, normal ROM - Respiratory Respiratory effort: normal Respiratory: bilateral: diminished (2 L nasal cannula (baseline)) - Cardiovascular Rhythm: irregularly irregular Heart Sounds: Present: S1 & S2 - Extremities Extremities: no ischemia, pulses intact, pulses symmetrical, No edema, normal temperature, normal color Peripheral Pulses: within normal limits - Abdominal General gastrointestinal: Present: soft, non-tender, non-distended, normal bowel sounds Female genitourinary: Present: deferred - Rectal Rectal Exam: deferred - Integumentary Integumentary: Present: clear, warm, dry - Musculoskeletal Musculoskeletal: strength equal bilaterally - Psychiatric Psychiatric: appropriate mood/affect, intact judgment & insight, memory intact, cooperative - Neurologic Neurologic: CNII-XII intact, moves all extremities - Allied Health Allied health notes reviewed: nursing Plan Activity: advance as tolerated Diet: low salt Additional Instructions: 89-year-old female past medical history of chronic systolic heart failure, CKD stage III, chronic atrial fibrillation on anticoagulation, hypothyroidism, and pacemaker implantation who presented to the ED with complaints of decreased energy level, shortness of breath, and increased fatigue that was concerning for possible heart failure exacerbation. In the ED the patient was found to be hemodynamically stable. Patient underwent TTE revealing EF 50-55% with normal size LV, normal LV systolic function, mild concentric LV hypertrophy, moderately dilated RV, mildly reduced RV systolic function, severely dilated LA, severely dilated RA, and RVSP is 35 mmHg. The patient was ruled out for acute on chronic systolic heart failure exacerbation. Patient had a urinalysis performed in the ED that was revealing for positive nitrites, large leukocyte esterase, WBC >182, 2+ bacteria. Urine culture so far is revealing gram-negative rods; however, the speciation has not been determined. Further discussion with the patient's daughter revealed that the patient has been diagnosed with acute cystitis over the previous 5 years. The patient has been on multiple oral and IV antibiotics. The patient denied any dysuria, increased frequency, suprapubic tenderness, change in urine color or odor. The patient also remained hemodynamically stable during the entire hospitalization. 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 Patient is medically clear for discharge. Care Plan Goals: Patient is medically clear for discharge. Assessment: 89-year-old female past medical history of chronic systolic heart failure, CKD stage III, chronic atrial fibrillation on anticoagulation, hypothyroidism, and pacemaker implantation who presented to the ED with complaints of decreased energy level, shortness of breath, and increased fatigue that was concerning for possible heart failure exacerbation. In the ED the patient was found to be hemodynamically stable. Patient underwent TTE revealing EF 50-55% with normal size LV, normal LV systolic function, mild concentric LV hypertrophy, moderately dilated RV, mildly reduced RV systolic function, severely dilated LA, severely dilated RA, and RVSP is 35 mmHg. The patient was ruled out for acute on chronic systolic heart failure exacerbation. Patient had a urinalysis performed in the ED that was revealing for positive nitrites, large leukocyte esterase, WBC >182, 2+ bacteria. Urine culture so far is revealing gram-negative rods; however, the speciation has not been determined. Further discussion with the patient's daughter revealed that the patient has been diagnosed with acute cystitis over the previous 5 years. The patient has been on multiple oral and IV antibiotics. The patient denied any dysuria, increased frequency, suprapubic tenderness, change in urine color or odor. The patient also remained hemodynamically stable during the entire hospitalization. 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 Patient is medically clear for discharge. Follow up with: SAMANTA NOEL MD [Staff Physician] - 3-5 Days Prescriptions: Clopidogrel [Plavix] 75 mg PO DAILY #30 tablet
== END 2022-02-26 16:05 | disposition home or self-care (01) ==
LOC: ED 18:11 → 4A 02-24 00:28 → INTOOBSV 02-24 00:28 → 4A 02-24 01:50
PROVIDERS: ADMIT Hospitalist; ATTEND Student in an Organized Health Care Education/Training Program
DX: N17.9 Acute kidney failure, unspecified (principal); N30.00 Acute cystitis without hematuria; I13.0 Hypertensive heart and chronic kidney disease with heart failure and stage 1 through stage 4 chronic kidney disease, or unspecified chronic kidney disease; I50.23 Acute on chronic systolic (congestive) heart failure; N18.30 Chronic kidney disease, stage 3 unspecified; E11.22 Type 2 diabetes mellitus with diabetic chronic kidney disease; I48.20 Chronic atrial fibrillation, unspecified; J44.9 Chronic obstructive pulmonary disease, unspecified; E03.9 Hypothyroidism, unspecified; M19.90 Unspecified osteoarthritis, unspecified site; E07.9 Disorder of thyroid, unspecified; K21.9 Gastro-esophageal reflux disease without esophagitis; E44.1 Mild protein-calorie malnutrition; Z68.23 Body mass index [BMI] 23.0-23.9, adult; Z79.899 Other long term (current) drug therapy; Z98.890 Other specified postprocedural states; Z79.02 Long term (current) use of antithrombotics/antiplatelets; Z79.4 Long term (current) use of insulin; Z95.1 Presence of aortocoronary bypass graft; Z95.0 Presence of cardiac pacemaker
CPT/HCPCS: 36415; 71045; 80048; 80053; 80061; 81001; 82947; 82962; 83880; 84484; 85025; 85027; 85610; 87086; 93005; 94760; 96365; 96366; 96375; 99285; C8929; G0378; J0696; J3490; 85007; 93306; Q9967; J1815

== ENCOUNTER 2022-03-01 16:06 | Emergency (ER) | payer MEDICARE ==
--- NOTE | 2022-03-01 16:52 | XRay Report ---
CHEST 1 VIEW 03/01/2022 4:37 PM INDICATION / CLINICAL INFORMATION: weakness. COMPARISON: One view of the chest from 02/23/2022. FINDINGS: SUPPORT DEVICES: Unchanged left pacemaker. HEART / MEDIASTINUM: Stable. LUNGS / PLEURA: There are nonspecific mild bilateral interstitial opacities that could represent lunchroom mother nafisa changes or mild edema. No dense area of consolidation. No significant pleural effusion. No pneumo thorax. ADDITIONAL FINDINGS: No significant additional findings. IMPRESSION: Stable cardiomegaly with additional findings as above. Signer Name: Waqas Velazquez MD Signed: 03/01/2022 4:48 PM Workstation Name: [id number]
[2022-03-01] MEDS ORDERED: SODIUM CHLORIDE 0.9% 1000 ML IV SOLN IV ONE (16:58)
--- NOTE | 2022-03-01 18:02 | History and Physical Report ---
History of Present Illness Chief complaint: She is weak and she is not eating History of present illness: 89 YO Female with Vascular Dementia, Cerebral Atherosclerosis, HTN, PVD, HLD, Malnutrition, Debility, Hypothyroidism, OA, Paroxysmal Atrial Fib on therapeutic anticoagulation with Eliquis, DM, GERD, recurrent UTI, CHF, Cardiomyopathy S/P Pacemaker Placement, BRCA S/P Double mastectomy presents ED for evaluation. Patient is lethargic with diminished cognition at time of evaluation and is unable to provide history. Patient history provided by daughter who is at bedside during exam and interview. Patient daughter reports "she is weak and she is not eating". Patient daughter reports that over the past 1 month the patient has experienced increased weakness, diminished oral intake resulting in noncompliance with medication. The patient is currently bedbound, nonambulatory and has a palliative performance score of 30%. Patient has experienced subjective unintentional weight loss. EMS notified and upon arrival the patient was found to be in distress and subsequent transported to [facility] for further care evaluation of the aforementioned symptoms. The patient was seen and evaluated in the emergency department. All lab and imaging studies reviewed. Patient found to have volume depletion. Patient treated with IV fluid resuscitation therapy. Advanced care planning conducted in ED. Past History Past Medical History: atrial fib, arthritis, diabetes, GERD, hypertension, hyperlipidemia, PVD Past Surgical History: mastectomy Social history: , lives with family. denies: smoking, alcohol abuse, prescription drug abuse Family history: diabetes, hypertension Medications and Allergies Allergies Allergy/AdvReac Type Severity Reaction Status Date / Time aspirin Allergy Rash Verified 03/01/22 17:15 Penicillins Allergy Rash Verified 03/01/22 17:15 contrast dye Allergy Unknown Uncoded 03/01/22 17:15 Home Medications Medication Instructions Recorded Confirmed Last Taken Type Albuterol Sulfate [Ventolin HFA] 2 puff IH Q4H PRN 01/24/14 02/24/22 02/23/22 History Furosemide [Lasix] 40 mg PO DAILY 01/24/14 02/24/22 02/23/22 09:00 History Levothyroxine [Synthroid] 88 mcg PO QAM 01/24/14 02/24/22 02/22/22 06:00 History Metoprolol [Lopressor TAB] 25 mg PO DAILY 01/24/14 02/24/22 02/23/22 08:50 History Apixaban [Eliquis] 5 mg PO Q12HR tablet 02/10/22 02/24/22 02/23/22 Rx Entresto 97 mg-103 mg Tablet 1 tab PO Q12HR 02/24/22 02/24/22 02/23/22 History Ferrous Sulfate 324 MG 324 mg PO DAILY 02/24/22 02/24/22 02/23/22 History Omeprazole 40 mg PO DAILY 02/24/22 02/24/22 02/23/22 History Spironolactone [Aldactone] 50 mg PO DAILY 02/24/22 02/24/22 02/23/22 History Clopidogrel [Plavix] 75 mg PO DAILY #30 tablet 02/26/22 Unknown Rx Review of Systems Constitutional: weight loss, weakness Ears, nose, mouth and throat: no ear pain, no nose pain, no nasal congestion, no nasal discharge, no sinus pressure Breasts: no change in shape, no swelling, no mass Cardiovascular: no palpitations, no syncope Respiratory: no cough, no excessive sputum, no shortness of breath Gastrointestinal: no abdominal pain, no vomiting, no constipation, no change in bowel habits Genitourinary Female: no pelvic pain, no flank pain, no dysuria, no urinary frequency, no post void dribbling Rectal: no pain, no incontinence, no bleeding Musculoskeletal: no neck stiffness, no neck pain, no arm numbness/tingling, no low back pain Integumentary: no rash, no pruritis, no redness, no jaundice, no boils Neurological: weakness, no head injury, no transient paralysis, no paralysis, no parathesias, no tingling Psychiatric: memory loss, hypersomnia, no anxiety Endocrine: no cold intolerance, no polyphagia, no polydipsia, no polyuria Hematologic/Lymphatic: no easy bruising, no easy bleeding Allergic/Immunologic: no urticaria, no allergic rhinitis, no wheezing Exam - Constitutional Vitals: Temp Pulse Resp BP Pulse Ox 98.1 F 90 18 70/42 03/01/22 16:06 03/01/22 16:06 03/01/22 16:06 03/01/22 16:06 General appearance: Present: cachectic - EENT Eyes: Present: PERRL ENT: hearing decreased - Neck Neck: Present: supple - Respiratory Respiratory effort: labored Respiratory: bilateral: diminished - Cardiovascular Heart Sounds: Present: S1 & S2. Absent: rub, click - Extremities Extremities: pulses symmetrical, No edema Peripheral Pulses: within normal limits - Abdominal General gastrointestinal: Present: soft, non-tender, non-distended, normal bowel sounds Female genitourinary: Present: normal - Integumentary Integumentary: Present: dry, clammy - Musculoskeletal Musculoskeletal: generalized weakness - Psychiatric Psychiatric: no appropriate mood/affect, no intact judgment & insight, no memory intact - Neurologic Neurologic: CNII-XII intact, no focal deficits, moves all extremities, no gait normal Assessment and Plan - Patient Problems (1) Vascular dementia Current Visit: Yes Status: Acute Qualifiers: Dementia behavioral disturbance: without behavioral disturbance Qualified Code(s): F01.50 - Vascular dementia without behavioral disturbance Plan to address problem: Verbal prompting, verbal redirection, benzodiazepine therapy as clinically indicated, supportive care. (2) Cerebral atherosclerosis Current Visit: Yes Status: Acute Plan to address problem: Risk factor reduction, antiplatelet therapy as clinically indicated. (3) Malnutrition Current Visit: Yes Status: Acute Qualifiers: Malnutrition type: protein-calorie malnutrition Protein-calorie malnutrition severity: moderate Qualified Code(s): E44.0 - Moderate protein- calorie malnutrition Plan to address problem: Increase protein intake, dietary supplementation, when awake and alert only. (4) Debility Current Visit: Yes Status: Acute Plan to address problem: Bed alarm, fall precautions. Koffi lift for transfers, standby assistance with transfers. (5) Paroxysmal atrial fibrillation Current Visit: Yes Status: Acute Plan to address problem: Continue therapeutic anticoagulation as clinically indicated. Risk and benefits discussed. (6) Hypothyroidism Current Visit: Yes Status: Acute Plan to address problem: Continue to monitor, continue medical management. (7) CHF (congestive heart failure) Current Visit: Yes Status: Acute Plan to address problem: No acute exacerbation at this time. Continue medical management. (8) Hypertension Current Visit: Yes Status: Acute Qualifiers: Hypertension type: primary hypertension Qualified Code(s): I10 - Essential (primary) hypertension Plan to address problem: Monitor blood pressure every shift, hold antihypertensive therapy for systolic blood pressure less than 130 mmHg. (9) GERD (gastroesophageal reflux disease) Current Visit: Yes Status: Acute Qualifiers: Esophagitis presence: without esophagitis Qualified Code(s): K21.9 - Ga stro-esophageal reflux disease without esophagitis Plan to address problem: PPI therapy, supportive care. (10) Hyperlipidemia Current Visit: Yes Status: Acute Qualifiers: Hyperlipidemia type: mixed hyperlipidemia Qualified Code(s): E78.2 - Mixed hyperlipidemia Plan to address problem: Low-cholesterol diet, supportive care.
[2022-03-01 18:04] LABS: Albumin 3.2 g/dL (3.9-5); Calcium 9.4 mg/dL (8.4-10.2)
[2022-03-01 18:13] LABS: Mean Corpuscular HGB Conc 30 % (30-34); Mean Corpuscular Volume 75 fl (79-97); Platelet Count 253 K/mm3 (140-440); Red Blood Count 5.34 M/mm3 (3.65-5.03); Red Cell Distribution Width 14.4 % (13.2-15.2)
[2022-03-01 18:49] VITALS: BP 70/46
[2022-03-01 18:50] LABS: Hematocrit 40.1 % (30.3-42.9); Hemoglobin 12.1 gm/dl (10.1-14.3)
--- NOTE | 2022-03-01 18:57 | Emergency Department Report ---
ED General Adult HPI - General Chief complaint: Weakness Stated complaint: WEAKNESS Time Seen by Provider: 03/01/22 16:49 Source: patient, EMS Mode of arrival: Stretcher Limitations: Altered Mental Status - Related Data Home Medications Medication Instructions Recorded Confirmed Last Taken Albuterol Sulfate [Ventolin HFA] 2 puff IH Q4H PRN 01/24/14 02/24/22 02/23/22 Furosemide [Lasix] 40 mg PO DAILY 01/24/14 02/24/22 02/23/22 09:00 Levothyroxine [Synthroid] 88 mcg PO QAM 01/24/14 02/24/22 02/22/22 06:00 Metoprolol [Lopressor TAB] 25 mg PO DAILY 01/24/14 02/24/22 02/23/22 08:50 Entresto 97 mg-103 mg Tablet 1 tab PO Q12HR 02/24/22 02/24/22 02/23/22 Ferrous Sulfate 324 MG 324 mg PO DAILY 02/24/22 02/24/22 02/23/22 Omeprazole 40 mg PO DAILY 02/24/22 02/24/22 02/23/22 Spironolactone [Aldactone] 50 mg PO DAILY 02/24/22 02/24/22 02/23/22 Previous Rx's Medication Instructions Recorded Last Taken Type Apixaban [Eliquis] 5 mg PO Q12HR tablet 02/10/22 02/23/22 Rx Clopidogrel [Plavix] 75 mg PO DAILY #30 tablet 02/26/22 Unknown Rx Allergies Allergy/AdvReac Type Severity Reaction Status Date / Time aspirin Allergy Rash Verified 03/01/22 17:15 Penicillins Allergy Rash Verified 03/01/22 17:15 contrast dye Allergy Unknown Uncoded 03/01/22 17:15 ED Review of Systems ROS: Stated complaint: WEAKNESS Other details as noted in HPI ED Past Medical Hx - Past Medical History Hx Hypertension: Yes Hx Heart Attack/AMI: Yes Hx Congestive Heart Failure: Yes Hx Diabetes: Yes Hx GERD: Yes Hx Sickle Cell Disease: No Hx Arthritis: Yes Hx Asthma: No Hx COPD: Yes Hx HIV: No Additional medical history: double masectomy, stents in each leg - Surgical History Hx Coronary Stent: Yes Hx Pacemaker: Yes Hx Breast Surgery: Yes (DOUBLE MASTECTOMY) - Social History Smoking Status: Never Smoker Substance Use Type: None - Medications Home Medications: Home Medications Medication Instructions Recorded Confirmed Last Taken Type Albuterol Sulfate [Ventolin HFA] 2 puff IH Q4H PRN 01/24/14 02/24/22 02/23/22 History Furosemide [Lasix] 40 mg PO DAILY 01/24/14 02/24/22 02/23/22 09:00 History Levothyroxine [Synthroid] 88 mcg PO QAM 01/24/14 02/24/22 02/22/22 06:00 History Metoprolol [Lopressor TAB] 25 mg PO DAILY 01/24/14 02/24/22 02/23/22 08:50 History Apixaban [Eliquis] 5 mg PO Q12HR tablet 02/10/22 02/24/22 02/23/22 Rx Entresto 97 mg-103 mg Tablet 1 tab PO Q12HR 02/24/22 02/24/22 02/23/22 History Ferrous Sulfate 324 MG 324 mg PO DAILY 02/24/22 02/24/22 02/23/22 History Omeprazole 40 mg PO DAILY 02/24/22 02/24/22 02/23/22 History Spironolactone [Aldactone] 50 mg PO DAILY 02/24/22 02/24/22 02/23/22 History Clopidogrel [Plavix] 75 mg PO DAILY #30 tablet 02/26/22 Unknown Rx ED Physical Exam - General Limitations: Altered Mental Status General appearance: cachectic, other (weak) - Head Head exam: Present: atraumatic, normocephalic - Eye Pupils: Present: normal accommodation - ENT ENT exam: Present: normal exam, normal orophraynx - Respiratory Respiratory exam: Present: normal lung sounds bilaterally - Cardiovascular Cardiovascular Exam: Present: regular rate, normal rhythm - GI/Abdominal GI/Abdominal exam: Present: soft - Expanded Neurological Exam Expanded Neurological exam: Present: innattentive Best Eye Response ([place]): (4) open spontaneously Best Motor Response ([place]): (6) obeys commands Best Verbal Response ([place]): (1) no verbal response Bailee Total: 11 - Skin Skin exam: Present: warm ED Course Vital Signs 03/01/22 03/01/22 03/01/22 16:06 17:24 17:31 Temperature 98.1 F Pulse Rate 90 71 Respiratory 18 21 Rate Blood Pressure 68/40 Blood Pressure 70/42 [Left] O2 Sat by Pulse 67 L Oximetry 03/01/22 03/01/22 03/01/22 17:45 17:58 18:01 Temperature Pulse Rate 70 70 Respiratory 18 16 19 Rate Blood Pressure 68/40 70/46 Blood Pressure [Left] O2 Sat by Pulse 94 88 Oximetry 03/01/22 03/01/22 03/01/22 18:15 18:31 18:45 Temperature Pulse Rate 70 70 70 Respiratory 21 17 17 Rate Blood Pressure 68/40 68/43 70/46 Blood Pressure [Left] O2 Sat by Pulse 95 91 Oximetry ED Medical Decision Making - Lab Data Result diagrams: 03/01/22 17:31 03/01/22 17:31 - Radiology Data Radiology results: report reviewed, image reviewed - Medical Decision Making work up showed AJ , and dehydration, hypotension, fluids given, Hospitalist discussed with daughter hospice care , tp will be discharged for home hospice Critical care attestation.: If time is entered above; I have spent that time in minutes in the direct care of this critically ill patient, excluding procedure time. ED Disposition Clinical Impression: Weakness, AJ (acute kidney injury), Cerebral atherosclerosis Vascular dementia Qualifiers: Dementia behavioral disturbance: without behavioral disturbance Qualified Code(s): F01.50 - Vascular dementia without behavioral disturbance Disposition: 50 HOSPICE/HOME Is pt being admited?: No Does the pt Need Aspirin: No Condition: Poor Instructions: and Dying, Hospice Referrals: SHELIA ROBLES [Other] - 7 Days
[2022-03-01 19:58] LABS: Basophils % (Manual) 0 % (0.0-1.8); Eosinophils % (Manual) 0 % (0.0-4.3); Total Cells Counted 100
== END 2022-03-01 18:59 | disposition hospice, home (50) ==
LOC: ED 16:06
DX: R53.1 Weakness (principal); I13.0 Hypertensive heart and chronic kidney disease with heart failure and stage 1 through stage 4 chronic kidney disease, or unspecified chronic kidney disease; E11.22 Type 2 diabetes mellitus with diabetic chronic kidney disease; F01.50 Vascular dementia, unspecified severity, without behavioral disturbance, psychotic disturbance, mood disturbance, and anxiety; N18.9 Chronic kidney disease, unspecified; I50.9 Heart failure, unspecified; N17.9 Acute kidney failure, unspecified; M19.90 Unspecified osteoarthritis, unspecified site; J44.9 Chronic obstructive pulmonary disease, unspecified; Z98.890 Other specified postprocedural states; Z88.0 Allergy status to penicillin; Z88.6 Allergy status to analgesic agent; Z91.041 Radiographic dye allergy status
CPT/HCPCS: 36415; 71045; 80053; 82140; 82550; 83880; 84484; 85007; 85025; 87040; 99284; J7030